=== PATIENT | male | born 1985 | race Caucasian/White ===

== ENCOUNTER 2023-11-13 02:48 | Emergency (ER) | payer SELFPAY ==
[~2023-11-13] VITALS: Ht 172.7 cm; Wt 66.0 kg
[2023-11-13 03:00] VITALS: BP 141/74; PULSE 96; RESP 16; TEMP 98.3; O2SAT 99
[2023-11-13] MEDS ORDERED: ONDANSETRON 4MG ODT PO ONE (03:15)
[2023-11-13] MEDS ORDERED: FAMOTIDINE 20MG TABLET PO ONE (03:15)
[2023-11-13 03:17] LABS: BASOPHILS % 0.4 % (0.0-2.0); EOSINOPHILS % 0.1 % (0.0-5.0); HEMATOCRIT. 46.3 % (42.0-52.0); HEMOGLOBIN. 15.6 g/dL (14.0-18.0); LYMPHOCYTES % 11.7 % (20.0-50.0); MEAN CORPUSCULAR HEMOGLOBIN 30.6 pg (28.0-32.0); MEAN CORPUSCULAR HGB CONC 33.7 g/dL (31.0-37.0); MEAN CORPUSCULAR VOLUME 90.8 fL (80.0-94.0); MEAN PLATELET VOLUME 9.7 fl (7.4-10.4); MONOCYTES % 3.6 % (2.0-8.0); NEUTROPHILS % 84.2 % (40.0-76.0); PLATELET 192 x1000/uL (130-400); RED CELL DISTRIBUTION WIDTH 13.5 % (11.6-14.6); WHITE BLOOD COUNT 19.6 x1000/uL (4.5-11.0)
[2023-11-13 03:58] LABS: ALANINE AMINOTRANSFERASE 23 IU/L (10-49); ALBUMIN 4.2 g/dL (3.2-4.8); ASPARTATE AMINOTRANSFERASE 19 IU/L (<34); BILIRUBIN TOTAL 0.4 mg/dL (0.1-1.0); CALCIUM 8.9 mg/dL (8.7-10.4); CARBON DIOXIDE 23 mEq/L (21-32); CHLORIDE 107 mEq/L (98-107); CREATININE 0.8 mg/dL (0.6-1.3); GLUCOSE 179 mg/dL (70-105); POTASSIUM 3.3 mEq/L (3.5-5.1); PROTEIN TOTAL 7.2 g/dL (6.0-8.3); SODIUM 140 mEq/L (136-145); UREA NITROGEN BLOOD 16 mg/dL (9-23)
[2023-11-13] MEDS ORDERED: IBUPROFEN 600MG TABLET PO ONE (04:15)
[2023-11-13] MEDS ORDERED: ONDA4TAB11 PO (05:56)
== END 2023-11-13 07:18 | disposition home or self-care (01) ==
LOC: ER 03:03
DX: R10.9 Unspecified abdominal pain (principal); R11.2 Nausea with vomiting, unspecified
CPT/HCPCS: 99284; 74176; 80053; 83690; 85025; 36415; Q0162